=== PATIENT | male | born 1960 | race Caucasian/White ===

== ENCOUNTER → 2025-01-23 | Day surgery (SDC) | payer MEDICAID ==
[~2025-01-23] VITALS: Ht 172.7 cm; Wt 79.4 kg
[~2025-01-23] MED LIST: ACETAMINOPHEN 1000MG/100ML 100 ML IV ONE; BUPIVACAINE HCL/PF 0.5% (5MG/ML) 10ML ONE; CEFAZOLIN SODIUM 1000MG/VIAL ONE; DEXAMETHASONE 4MG/ML 1ML VIAL ONE; EPHEDRINE SULFATE 50MG/ML VIAL ONE; FAMOTIDINE 20MG/2ML VIAL IV ONE; HYDROMORPHONE HCL/PF 1MG/ML INJ IV PRN; LABETALOL 5MG/ML 4ML INJ IV PRN; LACTATED RINGERS 1,000 ML IV SCH; LOSA50TA41 PO; NIFE-32 PO; NIFE90TA60 PO; ONDANSETRON HCL 4MG/2ML INJ IV PRN; ONDANSETRON HCL 4MG/2ML INJ ONE; PROPOFOL 200MG/20ML VIAL IV ONE; ROCURONIUM BROMIDE 10MG/ML VIAL 5ML IV ONE; SKIN ADHESIVE 0.7 GM EA TOP ONE; TAMS-54 PO
[2025-01-23] MEDS: ALBUTEROL (0.5%) 2.5MG/0.5ML NEB HHN SCH (11:00)
[2025-01-23] MEDS: HYDRALAZINE 20MG/ML VIAL IV PRN (11:42)
[2025-01-23 11:43] VITALS: BP 178/88; PULSE 67; RESP 15
[2025-01-23] MEDS: FENTANYL CITRATE/PF 50MCG/ML 2ML VIAL IV PRN (11:43)
== END | disposition home or self-care (01) ==
LOC: OR 06:11
PROVIDERS: ATTEND Surgery
DX: K80.10 Calculus of gallbladder with chronic cholecystitis without obstruction (principal); I10 Essential (primary) hypertension; N40.0 Benign prostatic hyperplasia without lower urinary tract symptoms; Z79.899 Other long term (current) drug therapy; Z98.890 Other specified postprocedural states
CPT/HCPCS: 88304; 47562; J3010; J0665; J0690; J1100; J3490 ×2; J1308; J0360; J2405; J2704; J0131